=== PATIENT | male | born 1930 | race Caucasian/White ===

== ENCOUNTER 2019-01-24 18:24 | Emergency (ER) | payer MEDICARE ==
[~2019-01-24] VITALS: Ht 177.8 cm; Wt 68.0 kg
--- NOTE | 2019-01-24 18:43 | ED Fall/Injury ---
General Chief Complaint: Trauma-Non Activation Stated Complaint: FALL Source: patient, EMS Exam Limitations: no limitations History of Present Illness Date Seen by Provider: January 24, 2019 Time Seen by Provider: 18:31 Initial Comments With chief complaint that he had a fall just prior to arrival on concrete had a scratch on the back of his head and having pain and dismobility of his right shoulder. He denies any fever cough shortness of breath chest pain abdominal pain nausea vomiting diarrhea dysuria or constipation. He is not having loss of consciousness with this fall. He says he landed on concrete. He denies being on blood thinners but doesn't really know what medicines he is on. He says he lives in a place where he pays to stay but wasn't really sure what the name was and EMS did not bring any paperwork or say where he was picked up. 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 Allergies and Home Medications Allergies Coded Allergies: No Known Drug Allergies (Unverified , 01/24/19) Patient Home Medication List Home Medication List Reviewed: Yes Review of Systems Review of Systems Constitutional: No chills, No diaphoresis, No fever Eyes: Denies Blindness, Denies Drainage, Denies Foreign Body Sensation Ears, Nose, Mouth, Throat: denies ear pain, denies nose pain Respiratory: No cough, No short of breath Cardiovascular: No chest pain, No edema Gastrointestinal: No abdominal pain, No constipation, No diarrhea, No nausea, No vomiting Genitourinary: No discharge, No dysuria Musculoskeletal: see HPI (right shoulder pain and immobility); No back pain; joint pain Past Azebjtu-Vbpcpw-Dpprhs Hx Patient Social History Alcohol Use: Denies Use Recreational Drug Use: No Smoking Status: Never a Smoker Recent Foreign Travel: No Contact w/Someone Who Travel: No Recent Hopitalizations: No Immunizations Up To Date Tetanus Booster (TDap): Unknown Seasonal Allergies Seasonal Allergies: No Past Medical History Surgeries: No Respiratory: No Integumentary: No Physical Exam Vital Signs Vital Signs - First Documented 01/24/19 18:54 Temp 97.5 Pulse 90 Resp 18 B/P (MAP) 181/88 (119) Pulse Ox 97 Capillary Refill : Height, Weight, BMI Height: '" Weight: lbs. oz. kg; BMI Method: General Appearance: WD/WN, no apparent distress HEENT: PERRL/EOMI, normal ENT inspection, TMs normal, pharynx normal, other ( may rebound sign and raccoon eyes or trauma. No hemotympanum) Neck: non-tender, full range of motion, supple, other (1 cm superficial right lateral abrasion on the posterior surface) Cardiovascular: normal peripheral pulses, regular rate, rhythm, no edema Respiratory: chest non-tender, lungs clear, normal breath sounds, no respiratory distress, no accessory muscle use Peripheral Pulses: 2+ Dorsalis Pedis (R), 2+ Left Dors-Pedis (L), 2+ Radial Pulses (R), 2+ Radial Pulses (L) Gastrointestinal: normal bowel sounds, non tender, soft Neurologic/Psychiatric: alert, normal mood/affect, other (Oriented to person and place but not time) [place] Coma Score Best Eye Response: (4) Open Spontaneously Best Verbal Response: (5) Oriented Best Motor Response: (6) Obeys Commands [place] Total: 15 Progress/Results/Core Measures Results/Orders Lab Results Laboratory Tests Test 01/24/19 18:25 01/24/19 18:40 Range/Units Urine Color YELLOW Urine Clarity CLEAR Urine pH 6.5 5-9 Urine Specific [place] 1.015 L 1.016-1.022 Urine Protein 1+ H NEGATIVE Urine Glucose (UA) NEGATIVE NEGATIVE Urine Ketones NEGATIVE NEGATIVE Urine Nitrite NEGATIVE NEGATIVE Urine Bilirubin NEGATIVE NEGATIVE Urine Urobilinogen NORMAL NORMAL MG/DL Urine Leukocyte Esterase NEGATIVE NEGATIVE Urine RBC (Auto) NEGATIVE NEGATIVE Urine RBC NONE /HPF Urine WBC RARE /HPF Urine Crystals NONE /LPF Urine Bacteria NEGATIVE /HPF Urine Casts NONE /LPF Urine Mucus NEGATIVE /LPF Urine Culture Indicated NO White Blood Count 5.6 4.3-11.0 10^3/uL Red Blood Count 3.75 L 4.35-5.85 10^6/uL Hemoglobin 12.0 L 13.3-17.7 G/DL Hematocrit 34 L 40-54 % Mean Corpuscular Volume 91 80-99 FL Mean Corpuscular Hemoglobin 32 25-34 PG Mean Corpuscular Hemoglobin Concent 35 32-36 G/DL Red Cell Distribution Width 14.4 10.0-14.5 % Platelet Count 152 130-400 10^3/uL Mean Platelet Volume 10.0 7.4-10.4 FL Neutrophils (%) (Auto) 62 42-75 % Lymphocytes (%) (Auto) 19 12-44 % Monocytes (%) (Auto) 16 H 0-12 % Eosinophils (%) (Auto) 2 0-10 % Basophils (%) (Auto) 1 0-10 % Neutrophils # (Auto) 3.5 1.8-7.8 X 10^3 Lymphocytes # (Auto) 1.1 1.0-4.0 X 10^3 Monocytes # (Auto) 0.9 0.0-1.0 X 10^3 Eosinophils # (Auto) 0.1 0.0-0.3 10^3/uL Basophils # (Auto) 0.1 0.0-0.1 10^3/uL Sodium Level 143 135-145 MMOL/L Potassium Level 3.3 L 3.6-5.0 MMOL/L Chloride Level 110 H 98-107 MMOL/L Carbon Dioxide Level 21 21-32 MMOL/L Anion Gap 12 5-14 MMOL/L Blood Urea Nitrogen 13 7-18 MG/DL Creatinine 0.85 0.60-1.30 MG/DL Estimat Glomerular Filtration Rate > 60 BUN/Creatinine Ratio 15 Glucose Level 104 70-105 MG/DL Calcium Level 9.2 8.5-10.1 MG/DL Corrected Calcium 9.0 8.5-10.1 MG/DL Total Bilirubin 0.4 0.1-1.0 MG/DL Aspartate Amino Transf (AST/SGOT) 27 5-34 U/L Alanine Aminotransferase (ALT/SGPT) 23 0-55 U/L Alkaline Phosphatase 76 40-136 U/L Total Protein 7.0 6.4-8.2 GM/DL Albumin 4.2 3.2-4.5 GM/DL My Orders Orders - ARA ORO Cbc With Automated Diff (01/24/19 18:35) Comprehensive Metabolic Panel (01/24/19 18:35) Ua Culture If Indicated (01/24/19 18:35) Chest 1 View, Ap/Pa Only (01/24/19 18:35) Shoulder, Right, 3 Views (01/24/19 18:35) Forearm, Right, 2 Views (01/24/19 18:35) Ct Head/Cervical Spine Wo (01/24/19 18:35) Fentanyl Injection (Sublimaze Injection (5/16/19 18:45) Dipht,Pertuss(Acell),Tet Adult (Boostrix (01/24/19 18:45) Medications Given in ED Current Medications Medications Dose Ordered Sig/August Route Start Time Stop Time Status Last Admin Dose Admin Diphtheria/ Tetanus/Acell Pertussis 0.5 ml ONCE ONCE IM 01/24/19 18:45 01/24/19 18:46 DC 01/24/19 18:55 0.5 ML Fentanyl Citrate 50 mcg ONCE ONCE IVP 01/24/19 18:45 01/24/19 18:46 DC 01/24/19 18:50 50 MCG Vital Signs/I&O 01/24/19 18:54 Temp 97.5 Pulse 90 Resp 18 B/P (MAP) 181/88 (119) Pulse Ox 97 Progress Progress Note : Time: 19:54 Progress Note We'll obtain CT of the head and neck. Bandage to the abrasion on his right neck and skin tear in his right forearm we'll address with some Mepilex. His right shoulder and proximal humerus is concerning for possible fracture. We'll obtain plain film x-rays of that plus his chest. He is not tender in any of his other extremities. Basic blood and urine. His daughter Angie arrives and tells us that he is a guest at [facility] in [place]. He had an unwitnessed fall according to staff. 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 He has only been living there for about a week. He was recently started on Remeron and Risperdal for sleep at night and confusion. Diagnostic Imaging Diagonstic Imaging: Xray Plain Films/CT/US/NM/MRI: chest Comments [facility] [place] NAME: EMERITA REAVES [facility] REC#: [id number] PT STATUS: REG ER : 1930 PHYSICIAN: ARA ORO MD ADMIT DATE: 01/24/19/ER Draft Date of Exam:01/24/19 CHEST 1 VIEW, AP/PA ONLY INDICATION: Fall. EXAMINATION: Frontal chest was obtained at 7:30 p.m. FINDINGS: Heart and mediastinal silhouette are normal in appearance. The lungs appear clear. There is no pneumothorax or pleural fluid. There is no acute overt bony abnormality in the chest. IMPRESSION: No acute process in the chest. Dictated on workstation # [id number] Dict: 01/24/192000 Trans: 01/24/[address] [place] [address] [id number] Interpreted by: REMY HARTMANN MD Electronically signed by: Reviewed: Reviewed by Al Diagonstic Imaging: Xray Plain Films/CT/US/NM/MRI: other (left shoulder) Comments [facility] [place] NAME: EMERITA REAVES [facility] REC#: [id number] PT STATUS: REG ER : 1930 PHYSICIAN: ARA ORO MD ADMIT DATE: 01/24/19/ER Draft Date of Exam:01/24/19 SHOULDER, RIGHT, 3 VIEWS INDICATION: Right shoulder pain post fall AP, oblique, transscapular views of the right shoulder are obtained. There is no fracture or dislocation. There is degenerative change of AC joint. There is minimal distance between the acromion and humeral head, the humeral head is high riding in the glenoid fossa, these findings suggest chronic rotator cuff disease. IMPRESSION: No acute fracture or dislocation. Findings suggestive of chronic rotator cuff disease. Dictated on workstation # [id number] Dict: 01/24/192001 Trans: 01/24/192004 [facility] [phone] Interpreted by: REMY HARTMANN MD Electronically signed by: Reviewed: Reviewed by Al Diagonstic Imaging: CT (noncontrast) Plain Films/CT/US/NM/MRI: c-spine, head Comments NAME: EMERIAT REAVES [facility] REC#: [id number] PHYSICIAN: ARA ORO MD CC: LAITH COTO MD; ARA ORO Page 2 of 2 RADIOLOGY REPORT [facility] [place] CC: LAITH COTO MD; ARA ORO Page 1 of 2 RADIOLOGY REPORT NAME: EMERITA REAVES [facility] REC#: [id number] PT STATUS: REG ER : 1930 PHYSICIAN: ARA ORO MD ADMIT DATE: 01/24/19/ER Signed Date of Exam: 01/24/19 CT HEAD/CERVICAL SPINE WO PROCEDURE: CT head and CT cervical spine without contrast. TECHNIQUE: Multiple contiguous axial images were obtained through the brain and cervical spine without the use of intravenous contrast. Sagittal and coronal reformations through the cervical spine were then performed. Auto Exposure Controls were utilized during the CT exam to meet ALARA standards for radiation dose reduction. INDICATION: Fall, injury. COMPARISON: None available. FINDINGS: CT HEAD: Global atrophy is present. No hyperdense hemorrhage or space-occupying mass. No hydrocephalus or midline shift. Basilar cisterns are widely patent. No features of territorial infarct by CT. Confluent periventricular and subcortical white matter hypointensity are most compatible chronic microvascular ischemic disease. Mastoid air cells are clear. Polypoid mucosal thickening of the right maxillary sinus is likely chronic in nature. No acute skull fracture. CT CERVICAL SPINE: No acute fracture or traumatic malalignment in the cervical spine. Multilevel degenerative changes including degenerative disc disease and facet osteoarthritis. No high-grade spinal stenosis. Vascular calcifications are present in the carotid bulbs. Impression: 1. No acute intracranial process or skull fracture. Age-appropriate global atrophy with chronic microvascular ischemic disease. 2. No acute fracture or traumatic malalignment cervical spine. Moderate degenerative cervical spondylosis. Dictated by: Dictated on workstation # [id number] Dict: 01/24/191928 Trans: 01/24/191938 Interpreted by: LAITH COTO MD Electronically signed by: LAITH COTO MD 01/24/191938 Reviewed: Reviewed by Al Diagonstic Imaging: Xray Plain Films/CT/US/NM/MRI: forearm (r) Comments [facility] [place] NAME: EMERITA REAVES [facility] REC#: [id number] PT STATUS: REG ER : 1930 PHYSICIAN: ARA ORO MD ADMIT DATE: 01/24/19/ER Draft Date of Exam:01/24/19 FOREARM, RIGHT, 2 VIEWS INDICATION: Right forearm pain post fall AP and lateral views of the right forearm are obtained. No fracture or acute bony abnormality is seen. There are vascular calcifications noted. IMPRESSION: No acute abnormality right forearm. Dictated on workstation # [id number] Dict: 01/24/192000 Trans: 01/24/192002 [facility] [phone] Interpreted by: REMY HARTMANN MD Electronically signed by: Reviewed: Reviewed by Me Departure Impression Primary Impression: Fall Qualified Codes: W19.XXXA - Unspecified fall, initial encounter Additional Impressions: Right shoulder pain Qualified Codes: M25.511 - Pain in right shoulder Skin tear of right forearm without complication Qualified Codes: S51.811A - Laceration without foreign body of right forearm, initial encounter Abrasion Disposition: HOME, SELF-CARE Condition: Stable Departure-Patient Inst. Decision time for Depature: 20:27 Referrals: GIANFRANCO ALCOCER DO Patient Instructions: Shoulder Pain (DC) Add. Discharge Instructions: Tylenol 1000 mg every 8 hours in addition to ibuprofen 800 mg every 8 hours as needed for pain. Topical creams such as icy hot or Biofreeze to be used as needed. Keep the right arm in a sling for the next week in follow-up in one week with orthopedics for reexamination of the right shoulder. Take one tablet hydrocodone every 6 hours as needed for breakthrough pain. All discharge instructions reviewed with patient and/or family. Voiced understanding. Scripts Hydrocodone Bit/Acetaminophen (Hydrocodone/Acetaminophen 5/325mg Tablet) 1 Tab Tab 1 EACH PO Q4-6HR PRN for PAIN-MODERATE MDD 10, #14 TAB 0 Refills Prov: ARA ORO 01/24/19 Copy Copies To 1: GIANFRANCO ALCOCER TITUS J January 24, 2019 18:43
[2019-01-24 18:45] LABS: BILIRUBIN,URINE NEGATIVE (NEGATIVE); CLARITY,URINE CLEAR; COLOR,URINE YELLOW; GLUCOSE, URINE (UA) NEGATIVE (NEGATIVE); KETONES,URINE NEGATIVE (NEGATIVE); LEUKOCYTE ESTERASE ,URINE NEGATIVE (NEGATIVE); NITRITE,URINE NEGATIVE (NEGATIVE); PH,URINE 6.5 (5-9); PROTEIN,URINE 1+ (NEGATIVE); UROBILINOGEN,URINE NORMAL (NORMAL)
[2019-01-24] MEDS ORDERED: TETANUS,DIPTH,PERTUSS P/F (BOOSTRIX) 0.5 ML VIAL IM ONE (18:45)
[2019-01-24] MEDS ORDERED: fentaNYL INJECTION 100 MCG/2 ML AMP IVP ONE (18:45)
[2019-01-24 18:48] LABS: BASOPHILS # (AUTO) 0.1 10^3/uL (0.0-0.1); BASOPHILS % (AUTO) 1 % (0-10); EOSINOPHILS # (AUTO) 0.1 10^3/uL (0.0-0.3); EOSINOPHILS % (AUTO) 2 % (0-10); HEMATOCRIT 34 % (40-54); LYMPHOCYTES # (AUTO) 1.1 X 10^3 (1.0-4.0); LYMPHOCYTES % (AUTO) 19 % (12-44); MEAN CORPUSCULAR HEMOGLOBIN 32 PG (25-34); MEAN CORPUSCULAR HGB CONC 35 G/DL (32-36); MEAN CORPUSCULAR VOLUME 91 FL (80-99); MONOCYTES # (AUTO) 0.9 X 10^3 (0.0-1.0); MONOCYTES % (AUTO) 16 % (0-12); NEUTROPHILS # (AUTO) 3.5 X 10^3 (1.8-7.8); NEUTROPHILS % (AUTO) 62 % (42-75); PLATELET COUNT 152 10^3/uL (130-400); RED CELL DISTRIBUTION WIDTH 14.4 % (10.0-14.5); WHITE BLOOD COUNT 5.6 10^3/uL (4.3-11.0)
--- NOTE | 2019-01-24 19:02 | NUR ---
NO MED LIST OR INFO PROVIDED BY UT. DAUGHTER ON HER WAY SPOKE W HER ON PHONE. JARRETTv- [phone]
[2019-01-24 19:04] LABS: BACTERIA,URINE NEGATIVE /HPF; WBC,URINE RARE /HPF
[2019-01-24 19:11] LABS: ALANINE AMINOTRANSFERASE 23 U/L (0-55); ALBUMIN 4.2 GM/DL (3.2-4.5); ALKALINE PHOSPHATASE 76 U/L (40-136); BILIRUBIN,TOTAL 0.4 MG/DL (0.1-1.0); BUN/CREATININE RATIO 15; CALCIUM 9.2 MG/DL (8.5-10.1); CARBON DIOXIDE 21 MMOL/L (21-32); CHLORIDE 110 MMOL/L (98-107); CREATININE SERUM 0.85 MG/DL (0.60-1.30); GFR ESTIMATED > 60; GLUCOSE 104 MG/DL (70-105); POTASSIUM 3.3 MMOL/L (3.6-5.0); SODIUM 143 MMOL/L (135-145)
--- OUTSIDE RECORDS SUMMARY | 2019-01-24 19:14 | XMS REPORT ---
Author Author [facility] Medical Staff Organization [facility] Address [address], [place] [address] Phone [phone] Care Team Providers Care Hand Coke Drawer Name Role Phone CARMEN STERLING MD PP [phone] Summary purpose TRANSITION OF CARE AUTO GENERATION Chief Complaint and Reason for Visit Admit Diagnosis 1 CATARACT NOS Problem list No authorized problems tracked for continuity of care are available for this visit. Encounters No authorized problems tracked for encounter diagnoses are available for this visit. Medications Home Medications Medication Directions Started Status Source Tricor 145 mg tablet 1 tablet oral 1 Daily for cholesterol Current Patient medication list amlodipine 10 mg tablet 1 tablet oral 1 Daily for htn Current Patient medication list Plavix 75 mg tablet 1 tablet oral 1 Daily for blood thinner Current Patient medication list indapamide 2.5 mg tablet 1 tablet oral 1 Daily for htn Current Patient medication list Allergies, adverse reactions, alerts Allergen Category Ingredient Status Reaction Severity Onset No Known Drug Allergies No known drug allergies No Known Drug Allergies Confirmed or Verified Immunizations No immunizations recorded for this patient visit Relevant diagnostic tests and/or laboratory data No authorized results are available for this patient visit History of procedures Procedure Code Code Type Description Date Performed Performing Physician 13.51 ICD9-CM TEMP-INF XTRACAP LENS EX 08-21-2014 MEERA HAGER 13.71 ICD9-CM INSERT LENS AT CATAR EXT 08-21-2014 63947 CPT-4 CATARACT SURG W/IOL, 1 STAGE 08-21-2014 MEERA HAGER A9270 CPT-4 NON-COVERED ITEM OR SERVICE 08-21-2014 MEERA HAGER J7120 CPT-4 RINGERS LACTATE INFUSION 08-21-2014 MEERA HAGER J2250 CPT-4 INJ MIDAZOLAM HYDROCHLORIDE 08-21-2014 MEERA HAGER V2632 CPT-4 POST CHMBR INTRAOCULAR LENS 08-21-2014 MEREA HAGER Functional status Functional Status Finding Observation Time Hearing Prob Loc none 93-38-776397:31 Vision Problems yes 28-14-404389:31 Vision Correct Dev glasses 67-74-459686:31 Ambulation Asst Dev none 47-13-488383:31 Range of Motion full :57 Muscle Strength RUE 5 ROM full resist :57 Muscle Strength RLE 5 ROM full resist :57 Muscle Strength LUE 5 ROM full resist :57 Muscle Strength LLE 5 ROM full resist :57 Transfers independent :57 Ambulation up ad mary :57 Balance steady :57 Bathing Assistance none :31 Eating Assistance none :31 Dressing Assistance none :31 Toileting Assistance none :31 Transfer Assistance none :31 Decline Slf Care/Mob no :31 Phys Cond Stable yes :31 Cognitive Status Finding Observation Time Oriented To Date 5 Yes :[address] 5 Yes :31 Name 3 Objects 3 Yes :31 Name Object in Rm 2 Yes :31 Recall 3 Objects 3 Yes :31 Repeats a Phrase 1 Yes :31 Follows Verbal Direc 3 Yes :31 Follows Written Dire 1 Yes :31 Write a Sentance 1 Yes :31 Draw an Object 1 Yes :31 Mini Mental Total 25 points :31 Learning Ability comprehends well :58 Neurological no :58 Psychological no :58 Physical no :58 Hearing no :58 Consumer Marketing Specialist Needed no :58 Sign Language no :58 Emotional no :58 Vision yes :58 Laguage no :58 Financial no :58 Vital signs Type Value Date Respiration Rate 18breaths per minute :54 Pulse 64beats per minute :54 Oxygen Saturation 97% :54 BP Systolic 129mmHg :54 BP Diastolic 49mmHg :54 Temperature 96.3F :54 Height 68inches :18 Weight 150LB :18 Social history Type Value Smoking Status NEVER SMOKER Treatment Plan No treatment plan text is available for this visit. Hospital discharge instructions Discharge Date/Time 08/21 Accompanied By and daughter Relationship other (explain) Dismissal Condition good Disposition on DC home Valuables no DC Inst/Educ Give yes Exit Care Educ Given yes Follow up appt already scheduled Follow Up Appt D/T Today at 1pm
--- OUTSIDE RECORDS SUMMARY | 2019-01-24 19:14 | XMS REPORT ---
Author Author [facility] Medical Staff [facility] Address [address], [place] [address] Phone [phone] Care Team Providers Care Dancing Teacher Name Role Phone CARMEN STERLING MD PP [phone] Summary purpose TRANSITION OF CARE AUTO GENERATION Chief Complaint and Reason for Visit Admit Diagnosis 1 SENILE NUCLEAR CATARACT Problem list No authorized problems tracked for [...] Physician 13.51 ICD9-CM TEMP-INF XTRACAP LENS EX 07-24-2014 MEERA HAGER 13.71 ICD9-CM INSERT LENS AT CATAR EXT 07-24-2014 02760 CPT-4 CATARACT SURG W/IOL, 1 STAGE 07-24-2014 MEERA HAGER A9270 CPT-4 NON-COVERED ITEM OR SERVICE 07-24-2014 MEERA HAGER J2250 CPT-4 INJ MIDAZOLAM HYDROCHLORIDE 07-24-2014 MEERA HAGER J7120 CPT-4 RINGERS LACTATE INFUSION 07-24-2014 MEERA HAGER V2632 CPT-4 POST CHMBR INTRAOCULAR LENS 07-24-2014 MEERA HAGER Functional status Functional Status Finding Observation Time Hearing Prob Loc none 85-59-057105:58 Vision Problems yes 32-48-043160:00 Vision Correct Dev glasses 66-59-526571:00 Ambulation Asst Dev none :58 Range of Motion full :34 Muscle Strength RUE 5 ROM full resist :34 Muscle Strength RLE 5 ROM full resist 39-60-847108:34 Muscle Strength LUE 5 ROM full resist :34 Muscle Strength LLE 5 ROM full resist :34 Transfers independent :34 Ambulation up ad mary :34 Balance steady 69-77-007050:34 Bathing Assistance none :58 Eating Assistance none :58 Dressing Assistance none :58 Toileting Assistance none :58 Transfer Assistance none :58 Decline Slf Care/Mob no :58 Phys Cond Stable yes :58 Cognitive Status Finding Observation Time Learning Ability comprehends well :35 Neurological no :35 Psychological no 92-38-289404:35 Physical no 60-43-656380:35 Hearing no :35 Manager Field Service Needed no :35 Sign Language no :35 Emotional no :35 Vision yes :35 Laguage no :35 Financial no :35 Vital signs Type Value Date Respiration Rate 18breaths per minute :35 Pulse 76beats per minute :35 Oxygen Saturation 97% 90-33-615420:35 BP Systolic 141mmHg 27-01-331913:35 BP Diastolic 61mmHg 70-42-775651:35 Temperature 96.1F 98-84-203875:35 Height 68inches :04 Weight 150LB :04 Social history Type Value Smoking Status NEVER SMOKER Treatment Plan No treatment plan text is available for this visit. Hospital discharge instructions Discharge Date/Time 1050 07/24/14 Accompanied By friend Relationship other (explain) Dismissal Condition good Disposition on DC home Valuables no Valuable Type jewelry (describe) Comment: 1 silver colored watch DC Inst/Educ Give yes Exit Care Educ Given yes Follow up appt already seen Follow Up Appt D/T TODAY at 2:15
--- OUTSIDE RECORDS SUMMARY | 2019-01-24 19:14 | XMS REPORT | Continuity of Care Document ---
Demographics x Preferred Language Unknown Marital Status Unknown [employer] Affiliation Unknown Race Unknown Ethnic Group Unknown Author Organization Unknown Address Unknown Allergies Active Description Code Type Severity Reaction Onset Reported/Identified Relationship to Patient Clinical Status Yes No Known Drug Allergies [id number] ND N/A N/A Confirmed or Verified Medications There is no data. Problems There is no data. Procedures There is no data. Results There is no data. Encounters ACCT No. Visit Date/Time Discharge Status Pt. Type Provider Facility Loc./Unit Complaint [id number] 08/21/2014 06:00:00 08/21/2014 08:10:00 DIS Inpatient MEERA HAGER [facility] OPS [id number] 07/24/2014 08:15:00 07/24/2014 10:50:00 DIS Inpatient MEERA HAGER [facility] OPS [id number] 10/22/2014 11:04:17 10/22/2014 23:59:59 CLS Outpatient Robbi Gonzalez [id number] 05/21/2014 10:40:25 05/21/2014 23:59:59 CLS Outpatient Robbi Gonzalez
--- OUTSIDE RECORDS SUMMARY | 2019-01-24 19:14 | XMS REPORT ---
Author Author [facility] Medical Staff Organization [facility] Address [address] [place], [place] [address] Phone [phone] Care Team Providers Care Engineering Analyst Name Role Phone CARMEN STERLING MD PP [phone] Summary purpose TRANSITION OF CARE AUTO GENERATION Chief Complaint and Reason for Visit Admit Diagnosis 1 EYE SURGERY Problem list No authorized problems tracked for [...] for this patient visit History of procedures No procedures recorded for this patient visit. Functional status Functional Status Finding Observation Time Hearing Prob Loc none 84-50-220980:31 Vision Problems yes :31 Vision Correct Dev glasses :31 Ambulation Asst Dev none :31 Range of Motion full :57 Muscle Strength RUE 5 ROM full resist :57 Muscle Strength RLE 5 ROM full resist :57 Muscle Strength LUE 5 ROM full resist :57 Muscle Strength LLE 5 ROM full resist :57 Transfers independent :57 Ambulation up ad mary :57 Balance steady :57 Bathing Assistance none 81-08-879327:31 Eating Assistance none :31 Dressing Assistance none [...] Yes :31 Repeats a Phrase 1 Yes : Follows Verbal Direc 3 Yes : Follows Written Dire 1 Yes :31 Write a Sentance 1 Yes :31 Draw an Object 1 Yes :31 Mini Mental Total 25 points :31 Learning Ability comprehends well :58 Neurological no :58 Psychological no :58 Physical no :58 Hearing no :58 Thermodynamics Engineer Needed no :58 Sign Language no :58 [...]
--- NOTE | 2019-01-24 19:42 | Diagnostic Imaging Report ---
PROCEDURE: CT head and CT cervical spine without contrast. TECHNIQUE: Multiple contiguous axial images were obtained through the brain and cervical spine without the use of intravenous contrast. Sagittal and coronal reformations through the cervical spine were then performed. Auto Exposure Controls were utilized during the CT exam to meet ALARA standards for radiation dose reduction. INDICATION: Fall, injury. COMPARISON: None available. FINDINGS: CT HEAD: Global atrophy is present. No hyperdense hemorrhage or space-occupying mass. No hydrocephalus or midline shift. Basilar cisterns are widely patent. No features of territorial infarct by CT. Confluent periventricular and subcortical white matter hypointensity are most compatible chronic microvascular ischemic disease. Mastoid air cells are clear. Polypoid mucosal thickening of the right maxillary sinus is likely chronic in nature. No acute skull fracture. CT CERVICAL SPINE: No acute fracture or traumatic malalignment in the cervical spine. Multilevel degenerative changes including degenerative disc disease and facet osteoarthritis. No high-grade spinal stenosis. Vascular calcifications are present in the carotid bulbs. Impression: 1. No acute intracranial process or skull fracture. Age-appropriate global atrophy with chronic microvascular ischemic disease. 2. No acute fracture or traumatic malalignment cervical spine. Moderate degenerative cervical spondylosis. Dictated by: Dictated on workstation # [id number]
[2019-01-24] MEDS ORDERED: AMLODIPINE 10 MG (19:54)
[2019-01-24] MEDS ORDERED: MIRTAZAPINE 7.5 MG (19:54)
[2019-01-24] MEDS ORDERED: RISPERIDONE 0.25 MG TABLET (19:54)
[2019-01-24] MEDS ORDERED: CLOPIDOGREL 75 MG TABLET (19:54)
[2019-01-24] MEDS ORDERED: [UNRECOGNIZED DRUG - OTHER] (19:55)
[2019-01-24] MEDS ORDERED: LISINOPRIL 2.5 MG TABLET (19:55)
--- NOTE | 2019-01-24 20:04 | Diagnostic Imaging Report ---
INDICATION: Right forearm pain post fall AP and lateral views of the right forearm are obtained. No fracture or acute bony abnormality is seen. There are vascular calcifications noted. IMPRESSION: No acute abnormality right forearm. Dictated by: Dictated on workstation # [id number]
--- NOTE | 2019-01-24 20:05 | Diagnostic Imaging Report ---
INDICATION: Fall. EXAMINATION: Frontal chest was obtained at 7:30 p.m. FINDINGS: Heart and mediastinal silhouette are normal in appearance. The lungs appear clear. There is no pneumothorax or pleural fluid. There is no acute overt bony abnormality in the chest. IMPRESSION: No acute process in the chest. Dictated by: Dictated on workstation # [id number]
--- NOTE | 2019-01-24 20:06 | Diagnostic Imaging Report ---
INDICATION: Right shoulder pain post fall AP, oblique, transscapular views of the right shoulder are obtained. There is no fracture or dislocation. There is degenerative change of AC joint. There is minimal distance between the acromion and humeral head, the humeral head is high riding in the glenoid fossa, these findings suggest chronic rotator cuff disease. IMPRESSION: No acute fracture or dislocation. Findings suggestive of chronic rotator cuff disease. Dictated by: Dictated on workstation # [id number]
[2019-01-24] MEDS ORDERED: ACHD5005 PO (20:47)
[2019-01-24] MEDS ORDERED: HYDROcodone/APAP 5 MG/325 MG (LORTAB) TAB PO ONE (21:00)
[2019-01-24 21:15] VITALS: BP 143/74
== END 2019-01-24 21:15 | disposition home or self-care (01) ==
LOC: EDUNIT# 18:24 → ER 18:25
DX: S51.811A Laceration without foreign body of right forearm, initial encounter (principal); M25.511 Pain in right shoulder; R51 Headache; R40.2142 Coma scale, eyes open, spontaneous, at arrival to emergency department; R40.2252 Coma scale, best verbal response, oriented, at arrival to emergency department; R40.2362 Coma scale, best motor response, obeys commands, at arrival to emergency department; Z23 Encounter for immunization; W01.198A Fall on same level from slipping, tripping and stumbling with subsequent striking against other object, initial encounter
CPT/HCPCS: 36415; 70450; 71045; 72125; 73030; 73090; 80053; 81000; 85025; 90715

== ENCOUNTER 2019-04-21 20:58 | Emergency (ER) | payer MEDICARE ==
[~2019-04-21] VITALS: Ht 177.8 cm; Wt 63.5 kg
[~2019-04-21 20:58] MED LIST: ACHD5005 PO; AMLODIPINE 10 MG; CLOPIDOGREL 75 MG TABLET; LISINOPRIL 2.5 MG TABLET; MIRTAZAPINE 7.5 MG; RISPERIDONE 0.25 MG TABLET; [UNRECOGNIZED DRUG - OTHER]
--- OUTSIDE RECORDS SUMMARY | 2019-04-21 21:05 | XMS REPORT | Continuity of Care Document ---
Demographics x Preferred Language Unknown Marital Status Unknown Anabaptist Affiliation Unknown Race Unknown Ethnic Group Unknown Author Organization Unknown Address Unknown Phone Unavailable Allergies Active Description Code Type Severity Reaction Onset Reported/Identified Relationship to Patient Clinical Status Yes No Known Drug Allergies [id number] ND N/A N/A Confirmed or Verified Yes IV DYE UNKNOWN UNKNOWN Yes NO KNOWN DRUG ALLERGIES UNKNOWN UNKNOWN Yes No Known Drug Allergies [id number] Drug Allergy Unknown N/A 01/24/2019 Medications Medication Packaging Start Date Stop Date Route Dosage Sig POLYETHYLENE GLYCOL POWDER UD PWD (MIRALAX 17GM UNIT DOSE PAKS) gm 01/30/2019 03/01/2019 PRN Q6H RISPERIDONE TAB 0.5 MG (RISPERDAL) MG 01/30/2019 03/01/2019 TID&0800,1400,2000 TRAZODONE TAB 50 MG (DESYREL) MG 01/30/2019 02/28/2019 QHS&2100 MIRTAZAPINE TAB 15 MG (REMERON) MG 01/30/2019 02/28/2019 QHS&2100 HALOPERIDOL TAB 5 MG (HALDOL) MG 01/30/2019 03/01/2019 PRN Q8H IBUPROFEN TAB 800 MG (MOTRIN) MG 01/30/2019 03/01/2019 PRN Q8H ACETAMINOPHEN TAB 500 MG (TYLENOL) MG 01/30/2019 03/01/2019 PRN Q8H HYDROCODONE/APAP 5MG/325MG TAB 5 MG/325MG (JENNIFER-TAB 5/325) TAB 01/30/2019 03/01/2019 PRN Q6H ALUM/MAG/SIMETH 30CC LIQ (MYLANTA PLUS) cc 01/31/2019 03/02/2019 PRN Q4H POLYETHYLENE GLYCOL POWDER UD PWD (MIRALAX 17GM UNIT DOSE PAKS) gm 01/31/2019 03/02/2019 PRN Q3H RISPERIDONE TAB 0.5 MG (RISPERDAL) MG 01/31/2019 03/01/2019 Daily&0900 CALMOSEPTINE OINT TUBE (RISAMINE OINT) rubina 01/31/2019 03/02/2019 PRN QID LOPERAMIDE CAP 2 MG (IMMODIUM) MG 01/31/2019 03/02/2019 PRN QID LACTULOSE SYRUP LIQ 20 GM/30CC (CHRONULAC SYRUP) GM 01/31/2019 03/01/2019 BID&0800,2000 MILK OF MAGNMOISE LIQ ml 01/31/2019 03/02/2019 PRN BID CLOPIDOGREL TAB 75 MG (PLAVIX) MG 01/31/2019 03/01/2019 Daily&0900 LISINOPRIL TAB 5 MG (ZESTRIL) MG 01/31/2019 03/01/2019 Daily&0900 SERTRALINE TAB 50 MG (ZOLOFT) MG 01/31/2019 03/01/2019 Daily&0900 AMLODIPINE TAB 10 MG (NORVASC) MG 01/31/2019 03/01/2019 Daily&0900 POLYETHYLENE GLYCOL POWDER UD PWD (MIRALAX 17GM UNIT DOSE PAKS) gm 01/31/2019 03/01/2019 Daily&0900 BISACODYL SUPPOS 10 MG (DULCOLAX SUPPOS) MG 01/31/2019 03/02/2019 PRN Daily RISPERIDONE TAB 0.5 MG (RISPERDAL) MG 01/31/2019 03/01/2019 QPM&1700 HALOPERIDOL TAB 5 MG (HALDOL) MG 02/01/2019 03/03/2019 PRN Q8H RISPERIDONE TAB 1 MG (RISPERDAL) MG 02/03/2019 03/04/2019 Daily&1200 MIRTAZAPINE TAB 15 MG (REMERON) MG 02/03/2019 03/04/2019 QHS&2100 RISPERIDONE TAB 1 MG (RISPERDAL) MG 02/03/2019 03/04/2019 QHS&2100 MIRTAZAPINE TAB 15 MG (REMERON) MG 02/07/2019 02/14/2019 PRN QHS RISPERIDONE TAB 0.5 MG (RISPERDAL) MG 02/10/2019 02/10/2019 ONCE&0839 RISPERIDONE TAB 1 MG (RISPERDAL) MG 02/10/2019 03/11/2019 Daily&1200 RISPERIDONE TAB 1 MG (RISPERDAL) MG 02/10/2019 03/11/2019 QHS&1800 RISPERIDONE TAB 0.5 MG (RISPERDAL) MG 02/11/2019 03/12/2019 Daily&0600 RISPERIDONE TAB 0.5 MG (RISPERDAL) MG 02/12/2019 03/13/2019 Daily&1200 RISPERIDONE TAB 0.5 MG (RISPERDAL) MG 02/12/2019 03/13/2019 QPM&1800 RISPERIDONE TAB 0.5 MG (RISPERDAL) MG 02/13/2019 03/14/2019 QAM&0600 Problems Date Dx Coded Attending Type Code Diagnosis Diagnosed By 01/24/2019 ARA ORO MD, Ot M25.511 PAIN IN RIGHT SHOULDER 01/24/2019 ARA ORO MD Ot R40.2142 COMA SCALE, EYES OPEN, SPONTANEOUS, EMR 01/24/2019 ARA ORO MD Ot R40.2252 COMA SCALE, BEST VERBAL RESPONSE, ORIENT 01/24/2019 ARA ORO MD Ot R40.2362 COMA SCALE, BEST MOTOR RESPONSE, OBEYS C 01/24/2019 ARA ORO MD Ot R51 HEADACHE 01/24/2019 ARA ORO MD Ot S51.811A LACERATION W/O FOREIGN BODY OF RIGHT FOR 01/24/2019 ARA ORO MD Ot W01.198A FALL SAME LEV FROM SLIP/TRIP W STRIKE AG 01/24/2019 ARA ORO MD Ot Z23 ENCOUNTER FOR IMMUNIZATION 01/28/2019 ARA ORO MD, Ot M25.511 PAIN IN RIGHT SHOULDER 01/28/2019 ARA ORO MD Ot R40.2142 COMA SCALE, EYES OPEN, SPONTANEOUS, EMR 01/28/2019 ARA ORO MD Ot R40.2252 COMA SCALE, BEST VERBAL RESPONSE, ORIENT 01/28/2019 ARA ORO MD Ot R40.2362 COMA SCALE, BEST MOTOR RESPONSE, OBEYS C 01/28/2019 ARA ORO MD Ot R51 HEADACHE 01/28/2019 ARA ORO MD Ot S51.811A LACERATION W/O FOREIGN BODY OF RIGHT FOR 01/28/2019 ARA ORO MD Ot W01.198A FALL SAME LEV FROM SLIP/TRIP W STRIKE AG 01/28/2019 ARA ORO MD Ot Z23 ENCOUNTER FOR IMMUNIZATION 01/30/2019 GUILLERMINA ECHEVERRIA W 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 Results Test Result Range Complete urinalysis with reflex to culture - 01/24/19 18:25 Urine color determination YELLOW NRG Urine clarity determination CLEAR NRG Urine pH measurement by test strip 6.5 5-9 Specific gravity of urine by test strip 1.015 1.016-1.022 Urine protein assay by test strip, semi-quantitative 1+ NEGATIVE Urine glucose detection by automated test strip NEGATIVE NEGATIVE Erythrocytes detection in urine sediment by light microscopy NEGATIVE NEGATIVE Urine ketones detection by automated test strip NEGATIVE NEGATIVE Urine nitrite detection by test strip NEGATIVE NEGATIVE Urine total bilirubin detection by test strip NEGATIVE NEGATIVE Urine urobilinogen measurement by automated test strip (mass/volume) NORMAL NORMAL Urine leukocyte esterase detection by dipstick NEGATIVE NEGATIVE Automated urine sediment erythrocyte count by microscopy (number/high power field) NONE NRG Automated urine sediment leukocyte count by microscopy (number/high power field) RARE NRG Bacteria detection in urine sediment by light microscopy NEGATIVE NRG Crystals detection in urine sediment by light microscopy NONE NRG Casts detection in urine sediment by light microscopy NONE NRG Mucus detection in urine sediment by light microscopy NEGATIVE NRG Complete urinalysis with reflex to culture NO NRG Complete blood count (CBC) with automated white blood cell (WBC) differential - 01/24/19 18:40 Blood leukocytes automated count (number/volume) 5.6 10*3/uL 4.3-11.0 Blood erythrocytes automated count (number/volume) 3.75 10*6/uL 4.35-5.85 Venous blood hemoglobin measurement (mass/volume) 12.0 g/dL 13.3-17.7 Blood hematocrit (volume fraction) 34 % 40-54 Automated erythrocyte mean corpuscular volume 91 [foz_us] 80-99 Automated erythrocyte mean corpuscular hemoglobin (mass per erythrocyte) 32 pg 25-34 Automated erythrocyte mean corpuscular hemoglobin concentration measurement (mass/volume) 35 g/dL 32-36 Automated erythrocyte distribution width ratio 14.4 % 10.0- 14.5 Automated blood platelet count (count/volume) 152 10*3/uL 130-400 Automated blood platelet mean volume measurement 10.0 [foz_us] 7.4-10.4 Automated blood neutrophils/100 leukocytes 62 % 42-75 Automated blood lymphocytes/100 leukocytes 19 % 12-44 Blood monocytes/100 leukocytes 16 % 0-12 Automated blood eosinophils/100 leukocytes 2 % 0-10 Automated blood basophils/100 leukocytes 1 % 0-10 Blood neutrophils automated count (number/volume) 3.5 10*3 1.8-7.8 Blood lymphocytes automated count (number/volume) 1.1 10*3 1.0-4.0 Blood monocytes automated count (number/volume) 0.9 10*3 0.0- 1.0 Automated eosinophil count 0.1 10*3/uL 0.0-0.3 Automated blood basophil count (count/volume) 0.1 10*3/uL 0.0-0.1 Comprehensive metabolic panel - 01/24/19 18:40 Serum or plasma sodium measurement (moles/volume) 143 mmol/L 135-145 Serum or plasma potassium measurement (moles/volume) 3.3 mmol/L 3.6-5.0 Serum or plasma chloride measurement (moles/volume) 110 mmol/L 98-107 Carbon dioxide 21 mmol/L 21-32 Serum or plasma anion gap determination (moles/volume) 12 mmol/L 5-14 Serum or plasma urea nitrogen measurement (mass/volume) 13 mg/dL 7-18 Serum or plasma creatinine measurement (mass/volume) 0.85 mg/dL 0.60-1.30 Serum or plasma urea nitrogen/creatinine mass ratio 15 NRG Serum or plasma creatinine measurement with calculation of estimated glomerular filtration rate > NRG Serum or plasma glucose measurement (mass/volume) 104 mg/dL 70-105 Serum or plasma calcium measurement (mass/volume) 9.2 mg/dL 8.5-10.1 Serum or plasma total bilirubin measurement (mass/volume) 0.4 mg/dL 0.1-1.0 Serum or plasma alkaline phosphatase measurement (enzymatic activity/volume) 76 U/L 40-136 Serum or plasma aspartate aminotransferase measurement (enzymatic activity/volume) 27 U/L 5-34 Serum or plasma alanine aminotransferase measurement (enzymatic activity/volume) 23 U/L 0-55 Serum or plasma protein measurement (mass/volume) 7.0 g/dL 6.4-8.2 Serum or plasma albumin measurement (mass/volume) 4.2 g/dL 3.2-4.5 CALCIUM CORRECTED 9.0 mg/dL 8.5-10.1 Thyroid Stimulating Hormone - 01/30/19 17:26 TSH 3.03 mIU/mL 0.32-5.00 Rapid Drug Screen + ETOH,Medical - 01/30/19 17:26 Amphetamine NEGATIVE NEGATIVE Barbiturates NEGATIVE NEGATIVE Benzodiazepines NEGATIVE NEGATIVE Cocaine NEGATIVE NEGATIVE Ethanol, Urine <10.00 mg/dL 20.00-80.00 Marijuana NEGATIVE NEGATIVE Methylenedioxymethamphetamine NEGATIVE NEGATIVE Opiates NEGATIVE NEGATIVE Oxycodone NEGATIVE NEGATIVE Phencyclidine NEGATIVE NEGATIVE Propoxyphene NEGATIVE NEGATIVE Tricyclic Antidepressant NEGATIVE NEGATIVE MRSA Screen - 01/30/19 17:26 FINAL CULTURE RESULTS MRSA Negative Nasal Culture MEDIA PLATED Setup at 19:05 on 01/30/2019 EKG - 01/31/19 06:00 EKG Complete Comprehensive Metabolic Panel - 02/06/19 05:20 Albumin 3.7 g/dL 3.6-5.1 ALP 86 U/L 35-130 ALT 24 U/L 6-45 Anion Gap 11 6-14 AST 21 U/L 2-40 BUN 24 mg/dL 5-25 Calcium 8.9 mg/dL 8.3-10.4 Chloride 109 mmol/L 95-114 CO2 25 mEq/L 22-33 Creat 0.92 mg/dL 0.50-1.50 eGFR 77 mL/min/1.73m2 >59 Globulin 2.2 g/dL 2.3-3.5 Glucose 83 mg/dL 70-110 Osmo 292 280-295 Potassium 4.5 mmol/L 3.5-5.3 Sodium 140 mmol/L 134-148 TBil 0.4 mg/dL 0.2-1.2 TP 5.9 g/dL 6.0-8.3 Urinalysis - 02/10/19 16:10 Icotest N/A Negative Urine Volume Urine Volume Sufficient (10mL) Urine-Appearance Clear Clear Urine-Bacteria Trace Urine-Bilirubin Negative Negative Urine-Blood Trace-intact Negative Urine-Color Yellow Colorless-Lt. Yellow Urine-Epithelial Cells 0-5/HPF Urine-Glucose Negative Negative Urine-Ketones Negative Negative Urine-Leukocytes Negative Negative Urine-Nitrite Negative Negative Urine-pH 6.0 5-8.5 Urine-Protein Negative Negative Urine-RBC 0-2/HPF Urine-Specific [place] 1.010 1.000-1.030 Urine-WBC Negative Urobilinogen 0.2 E.U./dL 0.2-1.0 Comprehensive Metabolic Panel - 02/13/19 05:10 Albumin 3.7 g/dL 3.6-5.1 ALP 105 U/L 35-130 ALT 26 U/L 6-45 Anion Gap 13 6-14 AST 19 U/L 2-40 BUN 18 mg/dL 5-25 Calcium 8.9 mg/dL 8.3-10.4 Chloride 110 mmol/L 95-114 CO2 24 mEq/L 22-33 Creat 0.91 mg/dL 0.50-1.50 eGFR 78 mL/min/1.73m2 >59 Globulin 2.3 g/dL 2.3-3.5 Glucose 85 mg/dL 70-110 Osmo 296 280-295 Potassium 4.3 mmol/L 3.5-5.3 Sodium 143 mmol/L 134-148 TBil 0.3 mg/dL 0.2-1.2 TP 6.0 g/dL 6.0-8.3 Encounters ACCT No. Visit Date/Time Discharge Status Pt. Type Provider Facility Loc./Unit Complaint [id number] 08/21/2014 06:00:00 08/21/2014 08:10:00 DIS Inpatient MEERA HAGER [facility] OPS [id number] 07/24/2014 08:15:00 07/24/2014 10:50:00 DIS Inpatient MEERA HAGER [facility] OPS [id number] 01/30/2019 18:40:00 02/13/2019 17:55:00 DIS Inpatient [facility] [id number] 01/30/2019 19:40:19 Document Registration [id number] 10/22/2014 11:04:17 10/22/2014 23:59:59 CLS Outpatient Robbi Gonzalez [id number] 05/21/2014 10:40:25 05/21/2014 23:59:59 CLS Outpatient Robbi Gonzalez [id number] 01/24/2019 18:25:00 01/24/2019 21:15:00 DIS Emergency SHORTY COELHO, ARA Brown [facility] ER FALL
[2019-04-21 21:42] LABS: HEMATOCRIT 33 % (40-54); HEMOGLOBIN 11.1 G/DL (13.3-17.7); MEAN CORPUSCULAR HEMOGLOBIN 32 PG (25-34); MEAN CORPUSCULAR VOLUME 95 FL (80-99); WHITE BLOOD COUNT 5.7 10^3/uL (4.3-11.0)
[2019-04-21 21:43] LABS: BASOPHILS # (AUTO) 0.1 10^3/uL (0.0-0.1); BASOPHILS % (AUTO) 1 % (0-10); EOSINOPHILS # (AUTO) 0.1 10^3/uL (0.0-0.3); EOSINOPHILS % (AUTO) 2 % (0-10); LYMPHOCYTES # (AUTO) 1.2 X 10^3 (1.0-4.0); LYMPHOCYTES % (AUTO) 22 % (12-44); MEAN CORPUSCULAR HGB CONC 33 G/DL (32-36); MEAN PLATELET VOLUME 9.9 FL (7.4-10.4); MONOCYTES # (AUTO) 0.8 X 10^3 (0.0-1.0); MONOCYTES % (AUTO) 15 % (0-12); NEUTROPHILS # (AUTO) 3.4 X 10^3 (1.8-7.8); NEUTROPHILS % (AUTO) 60 % (42-75); PLATELET COUNT 141 10^3/uL (130-400); RED CELL DISTRIBUTION WIDTH 13.9 % (10.0-14.5)
[2019-04-21 21:47] VITALS: BP_SYST 152; BP_SYST 160; BP_SYST 170; BP_DIAS 65; BP_DIAS 70; BP_DIAS 75
--- NOTE | 2019-04-21 21:48 | Diagnostic Imaging Report ---
INDICATION: Fall. Shoulder pain. COMPARISON: None. FINDINGS: Single frontal radiographic view of the right shoulder was obtained. Right shoulder has a grossly unremarkable appearance on this single frontal view. No acute osseous abnormalities are seen. Joint spaces appear appropriate. Included portions of the right hemithorax are clear. IMPRESSION: 1. Unremarkable single frontal radiographic view of the right shoulder. Complete shoulder exam is recommended. Dictated by: Dictated on workstation # [id number]
--- NOTE | 2019-04-21 21:57 | ED Fall/Injury ---
General Chief Complaint: Trauma-Non Activation Stated Complaint: FALL; RT SHOULDER PAIN Nursing Triage Note: PT FELL PRIOR TO ARRIVAL AT CORRECTION. PT COMPLAINING OF RIGHT SHOULDER PAIN. NO LOC DURING FALL Source: patient, family History of Present Illness Date Seen by Provider: Apr 21, 2019 Time Seen by Provider: 21:30 Initial Comments 88 yo male brought from [place] by ambulance thinks he leaned on a table and it gave way causing fall no LOC no bleeding c/o right shoulder pain has light abrasion above right eye family says he fell earlier in the day also only seen here once before per computer record in for fall, skin tear on arm Allergies and Home Medications Allergies Coded Allergies: No Known Drug Allergies (Unverified , 01/24/19) Home Medications Hydrocodone Bit/Acetaminophen 1 Tab Tab, 1 EACH PO Q4-6HR PRN for PAIN-MODERATE Prescribed by: ARA ORO on 01/24/192046 Patient Home Medication List Home Medication List Reviewed: Yes Review of Systems Review of Systems Constitutional: no symptoms reported Eyes: Denies Blurred Vision Ears, Nose, Mouth, Throat: no symptoms reported Respiratory: no symptoms reported Cardiovascular: no symptoms reported; No palpitations, No syncope Gastrointestinal: No abdominal pain, No nausea, No vomiting Genitourinary: no symptoms reported Musculoskeletal: No neck pain Past Leudhia-Fhgzsn-Iebnig Hx Patient Social History Alcohol Use: Denies Use Recreational Drug Use: No Smoking Status: Never a Smoker 2nd Hand Smoke Exposure: No Recent Foreign Travel: No Contact w/Someone Who Travel: No Recent Infectious Disease Expo: No Recent Hopitalizations: No Physical Abuse: No Sexual Abuse: No Immunizations Up To Date Tetanus Booster (TDap): Unknown Seasonal Allergies Seasonal Allergies: No Past Medical History Surgeries: No Respiratory: No Cardiac: No Neurological: No Genitourinary: No Gastrointestinal: No Musculoskeletal: No Endocrine: No HEENT: No Cancer: No Psychosocial: No Integumentary: No Blood Disorders: No Physical Exam Vital Signs Vital Signs - First Documented 04/21/19 21:00 Temp 97.6 Pulse 84 Resp 18 B/P (MAP) 149/68 (95) Pulse Ox 95 O2 Delivery Room Air Capillary Refill : Less Than 3 Seconds Height, Weight, BMI Height: 5'10.00" Weight: 140lbs. oz. 63.437073en; BMI Method:Estimated General Appearance: no apparent distress HEENT: PERRL/EOMI, other (mild redness over lateral right eyebrow no swelling) Neck: non-tender Respiratory: chest non-tender, lungs clear, normal breath sounds Gastrointestinal: non tender, soft Extremities: normal range of motion, normal inspection Progress/Results/Core Measures Results/Orders Lab Results Laboratory Tests Test 04/21/19 21:28 04/21/19 22:00 Range/Units White Blood Count 5.7 4.3-11.0 10^3/uL Red Blood Count 3.52 L 4.35-5.85 10^6/uL Hemoglobin 11.1 L 13.3-17.7 G/DL Hematocrit 33 L 40-54 % Mean Corpuscular Volume 95 80-99 FL Mean Corpuscular Hemoglobin 32 25-34 PG Mean Corpuscular Hemoglobin Concent 33 32-36 G/DL Red Cell Distribution Width 13.9 10.0-14.5 % Platelet Count 141 130-400 10^3/uL Mean Platelet Volume 9.9 7.4-10.4 FL Neutrophils (%) (Auto) 60 42-75 % Lymphocytes (%) (Auto) 22 12-44 % Monocytes (%) (Auto) 15 H 0-12 % Eosinophils (%) (Auto) 2 0-10 % Basophils (%) (Auto) 1 0-10 % Neutrophils # (Auto) 3.4 1.8-7.8 X 10^3 Lymphocytes # (Auto) 1.2 1.0-4.0 X 10^3 Monocytes # (Auto) 0.8 0.0-1.0 X 10^3 Eosinophils # (Auto) 0.1 0.0-0.3 10^3/uL Basophils # (Auto) 0.1 0.0-0.1 10^3/uL Sodium Level 144 135-145 MMOL/L Potassium Level 3.5 L 3.6-5.0 MMOL/L Chloride Level 106 98-107 MMOL/L Carbon Dioxide Level 24 21-32 MMOL/L Anion Gap 14 5-14 MMOL/L Blood Urea Nitrogen 21 H 7-18 MG/DL Creatinine 1.08 0.60-1.30 MG/DL Estimat Glomerular Filtration Rate > 60 BUN/Creatinine Ratio 19 Glucose Level 97 70-105 MG/DL Calcium Level 9.1 8.5-10.1 MG/DL Corrected Calcium 8.9 8.5-10.1 MG/DL Total Bilirubin 0.2 0.1-1.0 MG/DL Aspartate Amino Transf (AST/SGOT) 19 5-34 U/L Alanine Aminotransferase (ALT/SGPT) 13 0-55 U/L Alkaline Phosphatase 92 40-136 U/L Troponin I < 0.30 <0.30 NG/ML Total Protein 6.8 6.4-8.2 GM/DL Albumin 4.3 3.2-4.5 GM/DL Urine Color YELLOW Urine Clarity CLEAR Urine pH 6.5 5-9 Urine Specific [place] 1.015 L 1.016-1.022 Urine Protein NEGATIVE NEGATIVE Urine Glucose (UA) NEGATIVE NEGATIVE Urine Ketones NEGATIVE NEGATIVE Urine Nitrite NEGATIVE NEGATIVE Urine Bilirubin NEGATIVE NEGATIVE Urine Urobilinogen 0.2 NORMAL MG/DL Urine Leukocyte Esterase NEGATIVE NEGATIVE Urine RBC (Auto) NEGATIVE NEGATIVE Urine RBC RARE /HPF Urine WBC NONE /HPF Urine Squamous Epithelial Cells RARE /HPF Urine Crystals NONE /LPF Urine Bacteria NEGATIVE /HPF Urine Casts NONE /LPF Urine Mucus NONE /LPF Urine Culture Indicated NO My Orders Orders - KELLY THAYER MD Iv Heplock-Insert (Order) (04/21/19 21:09) Ekg Tracing (04/21/19 21:09) Monitor-Rhythm Ecg Trace Only (04/21/19 21:09) Cbc With Automated Diff (04/21/19 21:09) Comprehensive Metabolic Panel (04/21/19 21:09) Troponin I (04/21/19 21:09) Shoulder 1 View Right (04/21/19 21:17) Orthostatic Vital Signs (Adult (04/21/19 21:17) Ed Iv/Invasive Line Start (04/21/19 21:33) Ua Culture If Indicated (04/21/19 22:04) Vital Signs/I&O 04/21/19 04/21/19 21:00 21:47 Temp 97.6 Pulse 84 74 78 85 Resp 18 B/P (MAP) 149/68 (95) 152/70 (97) 170/75 (106) 160/65 (96) Pulse Ox 95 O2 Delivery Room Air Blood Pressure Mean: 95 Initial ECG Impression Date: Apr 21, 2019 Initial ECG Impression Time: 21:59 Initial ECG Rate: 74 Initial ECG Rhythm: Normal Sinus (RBBB LAFB), PVC Diagnostic Imaging Diagonstic Imaging: Xray (right shoulder negative) Departure Impression Primary Impression: Contusion of right shoulder Qualified Codes: S40.011A - Contusion of right shoulder, initial encounter Additional Impression: Abrasion Disposition: HOME, SELF-CARE Condition: Improved Departure-Patient Inst. Referrals: SELF,TONYA COELHO (PCP/Family) Primary Care Physician Patient Instructions: Contusion (DC) Add. Discharge Instructions: try to not use the sling for more than 3 days so the shoulder doesn't get stiff KELLY THAYER MD Apr 21, 2019 21:57
[2019-04-21 22:01] LABS: ALANINE AMINOTRANSFERASE 13 U/L (0-55); ALKALINE PHOSPHATASE 92 U/L (40-136); BILIRUBIN,TOTAL 0.2 MG/DL (0.1-1.0); BUN/CREATININE RATIO 19; CALCIUM 9.1 MG/DL (8.5-10.1); CARBON DIOXIDE 24 MMOL/L (21-32); CHLORIDE 106 MMOL/L (98-107); CREATININE SERUM 1.08 MG/DL (0.60-1.30); GFR ESTIMATED > 60; GLUCOSE 97 MG/DL (70-105); POTASSIUM 3.5 MMOL/L (3.6-5.0); SODIUM 144 MMOL/L (135-145)
[2019-04-21 22:02] LABS: ALBUMIN 4.3 GM/DL (3.2-4.5); TOTAL PROTEIN 6.8 GM/DL (6.4-8.2)
[2019-04-21 22:15] LABS: CLARITY,URINE CLEAR; COLOR,URINE YELLOW
[2019-04-21 22:16] LABS: BACTERIA,URINE NEGATIVE /HPF; BILIRUBIN,URINE NEGATIVE (NEGATIVE); GLUCOSE, URINE (UA) NEGATIVE (NEGATIVE); KETONES,URINE NEGATIVE (NEGATIVE); LEUKOCYTE ESTERASE ,URINE NEGATIVE (NEGATIVE); NITRITE,URINE NEGATIVE (NEGATIVE); PH,URINE 6.5 (5-9); PROTEIN,URINE NEGATIVE (NEGATIVE); RBC,URINE RARE /HPF; SQUAMOUS EPITHELIAL CELL,UR RARE /HPF; UROBILINOGEN,URINE 0.2 MG/DL (NORMAL)
[2019-04-21 22:38] VITALS: BP 148/73
== END 2019-04-21 22:43 | disposition home or self-care (01) ==
LOC: EDUNIT# 20:58 → ER FS 21:00
DX: S40.011A Contusion of right shoulder, initial encounter (principal); S00.211A Abrasion of right eyelid and periocular area, initial encounter; W18.39XA Other fall on same level, initial encounter; Y92.129 Unspecified place in nursing home as the place of occurrence of the external cause
CPT/HCPCS: 36415; 73020; 80053; 81000; 84484; 85025; 93005; 93041